=== PATIENT | female | born 1940 | race Caucasian/White ===

== ENCOUNTER 2016-10-29 07:44 | Inpatient (IN) | payer MEDICARE, OTHER ==
[2016-10-29] VITALS (15 sets, daily range): BP systolic 115–168; BP diastolic 53–100; PULSE 55–97; RESP 10–20; Ht 158.8 cm; Wt 52.9 kg
[~2016-10-29] VITALS: Ht 158.8 cm; Wt 52.9 kg
[2016-10-29] MEDS ORDERED: ASPI-664 PO (08:34)
[2016-10-29] MEDS ORDERED: LOSA1TAB19 PO (08:34)
[2016-10-29] MEDS ORDERED: SUCCINYLCHOLINE CHLORIDE 100 MG/5 ML SYG IV ONE (08:36)
[2016-10-29] MEDS ORDERED: MIDAZOLAM 1 MG/ML 2 ML INJ ONE (08:36)
[2016-10-29] MEDS ORDERED: LIDOCAINE 2% (SDV) 5 ML INJ ONE (08:36)
[2016-10-29] MEDS ORDERED: ROCURONIUM 50 MG INJ ONE (08:36)
[2016-10-29] MEDS ORDERED: PROPOFOL 20 ML ONE (08:36)
[2016-10-29] MEDS ORDERED: FENTAnyl 50 MCG/ML VIAL ONE ×2 (08:36→10:59)
[2016-10-29] MEDS ORDERED: PRAV40TA76 PO (08:37)
[2016-10-29] MEDS ORDERED: CHOL10009 PO (08:37)
[2016-10-29] MEDS ORDERED: METF850T PO (08:37)
[2016-10-29] MEDS ORDERED: ONDANSETRON 4 MG INJ IV PRN ×2 (09:00→12:00)
[2016-10-29] MEDS ORDERED: OXYCODONE/ACETAMINOPHEN (5/325) TAB PO PRN ×2 (09:00)
[2016-10-29] MEDS ORDERED: MEPERIDINE 25 MG INJ IV PRN (09:00)
[2016-10-29] MEDS ORDERED: FENTAnyl 50 MCG/ML VIAL IV PRN (09:00)
[2016-10-29] MEDS ORDERED: PROCHLORPERAZINE 10 MG INJ IV PRN (09:00)
[2016-10-29] MEDS ORDERED: HYDROmorphONE (0.2 MG/ML) 10ML SYG IV PRN (09:00)
[2016-10-29] MEDS ORDERED: DIPHENHYDRAMINE 50 MG INJ IV PRN (09:00)
--- NOTE | 2016-10-29 09:32 | HPN ---
Date/Time of Note Date/Time of Note DATE: 10/29/16 TIME: 09:32 Interval H&P Admission Note Pt. seen H&P reviewed: No system changes FCO GRAJEDA MD Oct 29, 2016 09:32
[2016-10-29] MEDS ORDERED: LIDOCAINE 2%/EPI 30 ML INJ ONE (09:50)
[2016-10-29] MEDS ORDERED: BUPIVACAINE 0.5% (SDV) 30 ML INJ ONE (09:50)
[2016-10-29] MEDS ORDERED: POLYMYXIN/BACITRACIN 1L IRRIG ONE (09:51)
[2016-10-29] MEDS ORDERED: BACITRACIN/POLYMYXIN 28.35 GM OINT TOP ONE (09:51)
[2016-10-29] MEDS ORDERED: ONDANSETRON 4 MG INJ ONE (10:19)
[2016-10-29] MEDS ORDERED: METOCLOPRAMIDE 10 MG INJ ONE (10:19)
[2016-10-29] MEDS ORDERED: DEXAMETHASONE 4 MG/ML 1 ML INJ ONE (10:19)
[2016-10-29] MEDS ORDERED: CEFAZOLIN 1 GM INJ ONE (10:19)
[2016-10-29] MEDS ORDERED: PHENYLephrine (100 MCG/ML) 5ML SYG ONE (10:20)
[2016-10-29] MEDS ORDERED: INSULIN ASPART [NOVOLOG] 3 ML PEN SC ONE ×2 (10:30→22:00)
[2016-10-29] MEDS ORDERED: POLYMYXIN/BACITRACIN 1L IRRIG IRR ONE (10:53)
[2016-10-29] MEDS ORDERED: GLUCOSE GEL 15 GRAM TUBE BUCCAL PRN ×2 (11:00→12:30)
[2016-10-29] MEDS ORDERED: GLUCOSE GEL 15 GRAM TUBE PO PRN ×4 (11:00→12:30)
[2016-10-29] MEDS ORDERED: DEXTROSE 50% 50 ML SYRINGE IV PRN ×4 (11:00→12:30)
[2016-10-29] MEDS ORDERED: GLUCAGON 1 MG INJ IM PRN ×2 (11:00→12:30)
[2016-10-29] MEDS ORDERED: THROMBIN 5000 UNIT VIAL ONE (11:02)
[2016-10-29] MEDS ORDERED: GELATIN SIZE 100 SPONGE ONE (11:02)
[2016-10-29] MEDS ORDERED: EPHEDrine SULFATE 50 MG/5 ML SYG ONE (11:16)
[2016-10-29] MEDS ORDERED: GLYCOPYRROLATE 0.4 MG INJ ONE (11:18)
[2016-10-29] MEDS ORDERED: NEOSTIGMINE 3 MG/3 ML SYRINGE ONE (11:18)
[2016-10-29] MEDS ORDERED: HYDROCODONE/APAP (5/325) TAB PO PRN (12:00)
[2016-10-29] MEDS ORDERED: BISACODYL 10 MG SUPP PR PRN (12:00)
[2016-10-29] MEDS ORDERED: NALOXONE (0.4 MG/ML) INJ IV PRN (12:00)
[2016-10-29] MEDS ORDERED: HYDROmorphONE 1 MG/ML SYG IV PRN (12:00)
--- NOTE | 2016-10-29 12:11 | OPR ---
Date/Time of Note Date/Time of Note DATE: 10/29/16 TIME: 12:09 Operative Report Preoperative Diagnosis Normal Pressure Hydrocephalus Postoperative Diagnosis Normal Pressure Hydrocephalus Operation/Procedure Performed Right parietal ventriculoperitoneal shunt placement (Codman Sertas programmable set at 110) Surgeon: FCO GRAJEDA MD Estimated Blood Loss: 0 - 10 ml's Specimens CSF panel Grafts/Implants See op report Complications: None FCO GRAJEDA MD Oct 29, 2016 12:11
--- NOTE | 2016-10-29 12:57 | RADRPT ---
PROCEDURE: CT Head without. CLINICAL INDICATION: Postop evaluation. TECHNIQUE: The study was performed utilizing a multi-slice, multidetector CT scanner. Direct spira l 1 mm axial sections were obtained through the head without the use of intravenous contrast materia l. 1 or more of the following dose reduction techniques were utilized: Automated exposure control, adjustment of the mA and/or kV according to patient's size, iterative reconstruction technique. Co darien and sagittal reformations were obtained. The images were reviewed on a PACS workstation. RADIATION DOSE: CTDIvol: 45.0 mGyDLP: 630.2 mGy-cm COMPARISON: No prior studies are available for comparison. FINDINGS: There are postoperative changes from right parietal approach ventriculostomy with tip in the frontal horn of the right lateral ventricle. There is moderate prominence of the lateral and third ventric les, with mild ballooning of the bilateral temporal horns. There is moderate patchy periventricular white matter hypodensity, suggestive of transependymal CSF migration. There is mild peripheral cer ebral volume loss. There is a trace amount of pneumocephalus anterior to the right frontal lobe. T he brainstem and cerebellum are unremarkable. The fourth ventricle is minimally enlarged. There ar e mild inflammatory changes of the bilateral ethmoid air cells. The mastoid air cells and middle ea r cavities are normally aerated. There is pneumatization of the bilateral petrous apices without sully dence of inflammatory changes, normal variant. There are postoperative changes in the right temporal soft tissues with shunt reservoir in place. There is no intracranial hemorrhage, extra-axial fluid collection, mass lesion or midline shift. IMPRESSION: 1. Postoperative changes from right parietal approach ventriculostomy with tip in the frontal horn of the right lateral ventricle. 2. Moderate prominence of the lateral and third ventricles suggestive of hydrocephalus with mild tr ansependymal CSF migration. 3. No intracranial hemorrhage, extra-axial fluid collection, mass lesion or hydrocephalous. RPTAT: HGAS .Isael Garcia MD, Date Time Electronically viewed and signed by .Isael Garcia MD, on 10/29/2016 12:57 .S/
[2016-10-29 13:19] LABS: GLUCOSE,CSF 59 mg/dl (50-80)
[2016-10-29 13:20] LABS: # OF CELLS COUNTED 100; CSF COLOR COLORLESS; CSF VOLUME 2.5 ml
[2016-10-29 13:21] LABS: %CREANATED RBC CSF 0 %; CSF#TUBE COUNT TUBE#1; CSF#TUBES REC'D 1
--- NOTE | 2016-10-29 13:38 | RADRPT ---
PROCEDURE: XR Abdomen 2 views. CLINICAL INDICATION: Abdominal pain TECHNIQUE: AP and lateral supine abdomen x-ray. COMPARISON: None. FINDINGS: Ventriculoperitoneal shunt is identified curled over the anterior mid and upper abdomen in the midli ne. Scattered air and stool are noted in the colon. No dilated loops of small bowel are observed. No organomegaly is observed. A few phleboliths are seen in the pelvis. Calcified atherosclerosis is noted in the aorta. Degenerative changes are identified in the hips and spine. IMPRESSION: Ventriculoperitoneal shunt curled in the anterior mid and upper abdomen. Nonspecific bowel gas pattern. If further characterization of the abdomen is needed CT should be considered. RPTAT: AA .Otf Daly MD, Date Time Electronically viewed and signed by .Otf Daly MD, MD on 10/29/2016 13:38 .P/
[2016-10-29] MEDS: CEFAZOLIN 1 GM/50 ML (PMX) 50 ML IVPB SCH ×2 (13:56→21:25)
[2016-10-29] MEDS ORDERED: D5W-0.45 NACL + KCL 20 MEQ 1,000 ML IV SCH (14:00)
--- NOTE | 2016-10-29 14:15 | HP ---
Date/Time of Note Date/Time of Note DATE: 10/29/16 TIME: 14:07 Assessment/Plan VTE Prophylaxis VTE Prophylaxis Intervention: SCD's Lines/Catheters IV Catheter Type (from Nrs): Peripheral IV Assessment/Plan Problems: (1) S/P PATTERNMAKER ALL AROUND shunt Status: Acute Comment: She is successfully postop from a PATTERNMAKER ALL AROUND shunt for normal pressure hydrocephalus. We will have to see how much recovery of function she gets intellectually and mechanically. Please note that the mechanical portion is also dependent on the rather significant lumbar spinal disease that she has as well. It is not immediately clear to me whether or not neurosurgery has plans to do something with that at a later date. 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 This will affect her rehabilitation and will have to work with her carefully. (3) Lumbar spinal stenosis Status: Chronic Comment: As per neurosurgery. (4) Normal pressure hydrocephalus Status: Chronic Comment: Immediately postop hopefully good outcome (5) Diabetes mellitus type 2 in nonobese Status: Chronic Comment: She has been well controlled on her rather simplistic single agent regimen. Will continue this. (6) Hyperlipidemia associated with type 2 diabetes mellitus Status: Chronic Comment: Continue statin therapy which the patient's tolerating (7) Essential hypertension Status: Chronic Comment: Continue A2 receptor abigail therapy. HPI/ROS Admit Date/Time Admit Date/Time Oct 29, 2016 at 07:44 Hx of Present Illness 76-year-old single female who is admitted electively by Dr. Alfaro for elective PATTERNMAKER ALL AROUND shunt placement. She had been evaluated for ambulatory instability and was found to have normally lumbar spinal stenosis with significant radiculopathy but she also had normal pressure hydrocephalus with all of its attendant complications. She is now had a PATTERNMAKER ALL AROUND shunt placed by neurosurgery successfully. She is resting in bed answering questions appropriately. 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 She has a bachelor's degree with a experience. She is a retired software "remote mortgage underwriter. She now lives with her daughter 's family locally having previously lived in [place] alone. Alcohol Use: rarely Smoking Status: Former smoker (Quit 3 months ago) Drug Use: none Exam/Review of Systems Vital Signs Vitals Vital Signs Date Time Temp Pulse Resp B/P Pulse Ox O2 Delivery O2 Flow Rate FiO2 10/29/16 14:01 64 10/29/16 12:40 15 152/60 98 Room Air 10/29/16 12:20 10.0 10/29/16 12:06 98.0 Exam Constitutional: alert (She is oriented to person and place but not time she however is able to name the political figures of the day) Psych: no complaints Eyes: EOMI, nl conjunctiva, nl lids, nl sclera ENMT: mucosa pink and moist, nl external ears & nose, nl lips & teeth, nl nasal mucosa & septum Neck: supple Respiratory: clear to auscultation, normal air movement Cardiovascular: nl pulses, regular rate and rhythm Gastrointestinal: nl liver, spleen, non-tender, soft Extremities: normal pulses, other (Decreased muscle mass in the left gastroc) Neurological: CAMPAIGN CONSULTANT II-XII intact, nl speech, nl strength Skin: nl turgor, rash or lesions Medications Medications Current Medications Miscellaneous Information 1 ea NOTE XX ; Start 10/29/16 at 11:00 Glucose (Glutose) 15 gm Q15M PRN PO DECREASED GLUCOSE; Start 10/29/16 at 11:00 Glucose (Glutose) 22.5 gm Q15M PRN PO DECREASED GLUCOSE; Start 10/29/16 at 11:00 Dextrose (D50w Syringe) 25 ml Q15M PRN IV DECREASED GLUCOSE; Start 10/29/16 at 11:00 Dextrose (D50w Syringe) 50 ml Q15M PRN IV DECREASED GLUCOSE; Start 10/29/16 at 11:00 Glucagon (Glucagen) 1 mg Q15M PRN IM DECREASED GLUCOSE; Start 10/29/16 at 11:00 Glucose 15 gm 15 gm Q15M PRN BUCCAL DECREASED GLUCOSE; Start 10/29/16 at 11:00 Potassium Chloride/Dextrose/ Sod Cl (D5-1/2ns + KCl 20 Meq) 1,000 ml @ 100 mls/ hr Q10H IV Last administered on 10/29/16 13:57; Admin Dose 100 MLS/HR; Start at 14:00 Acetaminophen/ Hydrocodone Bitart ([place] (5/325)) 1 tab Q4H PRN PO PAIN LEVEL 1 -5; Start 10/29/16 at 12:00 Hydromorphone HCl 0.2 mg 0.2 mg Q1H PRN IV BREAKTHROUGH PAIN; Start 10/29/16 at 12:00 Cefazolin Sodium (Ancef 1 Gm/50 ml (Pmx)) 50 ml @ 100 mls/hr Q8H IVPB Last administered on 10/29/16 13:56; Admin Dose 100 MLS/HR; Start 10/29/16 at 14:00; Stop 10/30/16 at 06:29 Ondansetron HCl (Zofran Inj) 4 mg Q6H PRN IV NAUSEA AND/OR VOMITING; Start 10/29 at 12:00 Bisacodyl (Dulcolax Supp) 10 mg DAILY PRN VA CONSTIPATION; Start 10/29/16 at 12: 00 Docusate Sodium (Colace) 100 mg BID PO ; Start 10/29/16 at 21:00 Pantoprazole (Protonix Iv) 40 mg DAILY@06 IV ; Start 10/30/16 at 06:00 Naloxone HCl (Narcan) 0.2 mg Q2M PRN IV RR 8 BREATHS/MIN OR LESS; Start at 12:00 Neomycin/ Polymyxin/ Bacitracin (Neosporin Topical Oint) 1 applic BID TOP ; Start 10/29/16 at 21:00 Cholecalciferol (Vitamin D) 1,000 unit DAILY PO ; Start 10/30/16 at 09:00 Atorvastatin Calcium (Lipitor) 10 mg DAILY@21 PO ; Start 10/29/16 at 21:00 Miscellaneous Information 1 ea NOTE XX ; Start 10/29/16 at 12:30 Glucose (Glutose) 15 gm Q15M PRN PO DECREASED GLUCOSE; Start 10/29/16 at 12:30 Glucose (Glutose) 22.5 gm Q15M PRN PO DECREASED GLUCOSE; Start 10/29/16 at 12:30 Dextrose (D50w Syringe) 25 ml Q15M PRN IV DECREASED GLUCOSE; Start 10/29/16 at 12:30 Dextrose (D50w Syringe) 50 ml Q15M PRN IV DECREASED GLUCOSE; Start 10/29/16 at 12:30 Glucagon (Glucagen) 1 mg Q15M PRN IM DECREASED GLUCOSE; Start 10/29/16 at 12:30 Glucose (Glutose) 15 gm Q15M PRN BUCCAL DECREASED GLUCOSE; Start 10/29/16 at 12: 30 Hydrochlorothiazide (Hydrochlorothiazide) 12.5 mg DAILY PO ; Start 10/29/16 at 17 :00 JOAQUIN PERDOMO MD Oct 29, 2016 14:15
[2016-10-29] MEDS ORDERED: metFORMIN 850 MG TAB PO SCH ×2 (17:25→18:00)
[2016-10-29] MEDS: HYDROCHLOROTHIAZIDE 12.5 MG CAP PO SCH (17:28)
[2016-10-29] MEDS ORDERED: ATORVASTATIN 20 MG TAB PO SCH (21:00)
[2016-10-29] MEDS ORDERED: ATORVASTATIN 10 MG TAB PO SCH (21:00)
[2016-10-29] MEDS ORDERED: NON-FORMULARY/PATIENT OWN MED (Pravastatin Sodium* 40 MG) PO SCH (21:00)
[2016-10-29] MEDS: DOCUSATE SODIUM 100 MG CAP PO SCH (21:25)
[2016-10-29] MEDS: NEOMYC/POLYMYX/BACIT 30 GM OINT TOP SCH (22:43)
[2016-10-30] VITALS (9 sets, daily range): BP systolic 137–175; BP diastolic 59–78; PULSE 88–102; RESP 17–18
[2016-10-30] MEDS: CEFAZOLIN 1 GM/50 ML (PMX) 50 ML IVPB SCH (05:50)
[2016-10-30] MEDS ORDERED: PANTOPRAZOLE 40 MG INJ IV SCH (06:00)
[2016-10-30] MEDS ORDERED: HYDROCHLOROTHIAZIDE 12.5 MG CAP PO SCH (09:00)
[2016-10-30] MEDS ORDERED: CHOLECALCIFEROL 1,000 UNIT TAB PO SCH ×2 (09:00)
[2016-10-30] MEDS ORDERED: LOSARTAN 50 MG TAB PO SCH (09:00)
[2016-10-30] MEDS: DOCUSATE SODIUM 100 MG CAP PO SCH (09:09)
[2016-10-30] MEDS: HYDROCHLOROTHIAZIDE 12.5 MG CAP PO SCH (09:10)
[2016-10-30] MEDS: NEOMYC/POLYMYX/BACIT 30 GM OINT TOP SCH (09:10)
--- NOTE | 2016-10-30 10:58 | PDOCDIS ---
Discharge Instructions DIAGNOSIS Discharge Diagnosis Normal pressure hydrocephalus status post SPECIAL WEAPONS AND TACTICS OFFICER shunt; diabetes mellitus type 2; hypertension; hyperlipidemia; lumbar spinal stenosis with radiculopathy especially to the right CONDITION Patient Condition: Good HOME CARE INSTRUCTIONS: Special Diet: 1800 nigel ADA ACTIVITY: Activity Restrictions: Slowly Increase Activity Do not operate Machinery Do not operate Power Tool FOLLOW UP/APPOINTMENTS Follow-up Plan Neurosurgery Dr. Alfaro in [address] Navarro in 1 month SCHOOL/WORK RELEASE May return to School/Work with: No Restrictions JOAQUIN NAVARRO MD Oct 30, 2016 10:58
--- NOTE | 2016-10-30 11:01 | DS ---
Date/Time of Note Date/Time of Note DATE: 10/30/16 TIME: 10:59 Discharge Summary Admission/Discharge Info Admit Date/Time Oct 29, 2016 at 07:44 Discharge Date/Time 10/30/2016 Discharge Diagnosis Normal pressure hydrocephalus status post CAGE/VAULT SUPERVISOR shunt; diabetes mellitus type 2; hypertension; hyperlipidemia; lumbar spinal stenosis with radiculopathy especially to the right Patient Condition: Good Consults Internal medicine Procedures Operative Report Preoperative Diagnosis Normal Pressure Hydrocephalus Postoperative Diagnosis Normal Pressure Hydrocephalus Operation/Procedure Performed Right parietal ventriculoperitoneal shunt placement (Codman Sertas programmable set at 110) Surgeon: FCO GRAJEDA MD Estimated Blood Loss: 0 - 10 ml's Specimens CSF panel Grafts/Implants See op report Complications: None FCO GRAJEDA MD Hx of Present Illness 76-year-old single female who is admitted electively by Dr. Grajeda for elective CAGE/VAULT SUPERVISOR shunt placement. She had been evaluated for ambulatory instability and was found to have normally lumbar spinal stenosis with significant radiculopathy but she also had normal pressure hydrocephalus with all of its attendant complications. She is now had a CAGE/VAULT SUPERVISOR shunt placed by neurosurgery successfully. She is resting in bed answering questions appropriately. Hospital Course 76-year-old female with normal pressure hydrocephalus and lumbar spinal stenosis. She is brought in electively for the CAGE/VAULT SUPERVISOR shunt which was performed without complication. She has tolerated procedure well and has had no complications. She is trying to ambulate with the daughter's assistance. Will have physical therapy evaluate her before she goes home for any fine- tuning. Her rehabilitation potential is fair to good she has no known chemical diseases he is not a hazard to herself or others. She will follow-up with Dr. Grajeda in 1-2 weeks and in my office in 1 month. Home Meds Reported Medications Metformin Hcl* (Metformin Hcl*) 850 Mg Tablet, 850 MG PO WITH BREAKFAST DINNE, # 30 TAB 10/29/16 Pravastatin Sodium* (Pravastatin Sodium*) 40 Mg Tablet, 40 MG PO HS, TAB 10/29/16 Cholecalciferol (Vitamin D3) 1,000 Unit Capsule, 1000 UNIT PO DAILY, CAP 10/29/16 Losartan-Hydrochlorothiazide (Losartan-HCTZ) 50-12.5 Mg Tab, 1 TAB PO DAILY, TAB 10/29/16 Aspirin (Low Dose Aspirin) 81 Mg Tablet., 81 MG PO DAILY, #30 TAB 10/29/16 Follow-up Plan As above Primary Care Provider Not On Staff Doctor Time spent on discharge: > 30 minutes Pending Labs Laboratory Tests Test 10/29/16 12:00 10/29/16 12:26 10/29/16 12:30 10/29/16 21:29 CSF Glucose 59mg/dl (50-80) CSF Total Protein 24mg/dl (12-60) Bedside Glucose 98mg/dL (70-220) 317mg/dL (70-220) CSF Tubes Submitted 1 CSF Volume 2.5ml CSF Appearance CLEAR CSF Color COLORLESS CSF WBC 10/uL (0-10) CSF RBC 0/uL (0-0) CSF Cell Count Tube # TUBE#1 CSF Total Cells Counted 100 CSF Neutrophils % 30% CSF Lymphocytes % 40% CSF Monocytes % 30% CSF Crenated Cells 0% Test 10/30/16 01:34 10/30/16 08:02 Bedside Glucose 71mg/dL (70-220) 105mg/dL (70-220) Microbiology Date/Time Source Procedure Growth Status 10/29/16 12:00 Ventricular Csf Gram Stain - Final Resulted 10/29/16 12:00 Ventricular Csf CSF Culture - Preliminary Resulted JOAQUIN PERDOMO MD Oct 30, 2016 11:01
--- NOTE | 2016-12-15 16:30 | OPR ---
Date/Time of Note Date/Time of Note DATE: 12/15/16 TIME: 16:29 Operative Report Free Text/Dictation Please note: The original dictated operative report does not appear in the computer due to Hospital phone laboratory analyst problems that have since been resolved. Date of operation: 10/29/2016 Operating surgeon: Fco Grajeda M.D. Preoperative diagnosis: Normal pressure hydrocephalus Postoperative diagnosis: Normal pressure hydrocephalus Operation performed: Right parietal ventriculoperitoneal shunt placement ( Codman Sertas programmable shunt valve set at 110) Indication for procedure: This is a 76-year-old female with progressively increasing triad of symptoms including gait ataxia and instability, bladder incontinence as well as cognitive decline including memory loss over the past 1- 2 years. The patient was found to have ventriculomegaly out of proportion to age-related cerebral atrophy on imaging studies. The patient's image findings together with her signs and symptoms are consistent with normal pressure hydrocephalus and the patient was referred by neurology to de for further evaluation and management. The neurologist has requested a diagnostic lumbar puncture under interventional techniques but due to the patient's lumbar spondylosis and the patient's discomfort during the procedure a lumbar puncture was not possible. The patient was also found to have lumbar stenosis causing lumbar radiculopathy as well as neurogenic claudication symptoms. The risks and benefits of the above operation were explained in great detail to the patient as well as her daughter with the understanding that the patient's symptoms may not resolve or improve even with CSF diversion procedure i.e. the patient placement. The patient and her daughter also understand that she will be reevaluated postoperatively and will determine whether she would also benefit from lumbar decompressive surgery for lumbar stenosis. The patient and her daughter fully understand the above discussion and wished to proceed with the above surgery. Description of operative procedure: The patient was brought to the operating room and placed supine on the operating table. After general anesthesia was obtained, a roll was placed underneath the patient's right hemithorax. The patient's head was then rotated towards the left exposing the right hemiscalp. A small curvilinear incision 2 fingerbreadths above and 2 fingerbreadths posterior to the ear, approximately at the level of the right parietal boss was marked. A small strip of hair was then shaven. Also a small linear incision by the right paramedian area in the right upper abdominal quadrant was marked. After the scalp, neck, chest and abdomen was prepped and draped under essential fashion, local anesthetic infiltrated into both marked incisions. Attention was first paid to the abdominal incision. The skin was incised down to the level of the fascia. The rectus sheath was then cut down to the level of the muscles. The muscle fibers were then spread and the posterior rectus sheath and the transversalis fascia was cut. The peritoneum was located and a small opening into the peritoneum was made. The omentum and bowel was visualized directly. Tonsils were placed around the edges of the peritoneum keeping the intraperitoneal space open. Attention was now paid to the right parietal area. The skin was incised down to the level of the skull. A small pocket for the shunt valve was created just above the pericranium and inferiorly. Using a title officer, a bur hole was made down to the level of the dura over the exposed skull. Then the Bacticeal distal CALENDERING MACHINE OPERATOR shunt catheter was connected to the [facility] [employer] programmable shunt valve that was preprogrammed to a setting of 110. The shunt valve and the distal shunt tubing was primed with antibiotic irrigation. The distal CALENDERING MACHINE OPERATOR shunt was then tunneled between the scalp incision towards the abdominal incision. The dura was then coagulated and a small opening into the dura was made. The proximal CALENDERING MACHINE OPERATOR shunt catheter was then inserted almost perpendicular angle to the brain until a pop into the ependyma was felt. At this point the stylet was removed and the rest of the proximal shunt catheter was further advanced with little resistance into the lateral ventricle. Clear CSF was seen progression to out of the shunt tubing under relatively increased pressure. Some CSF was sent off the table for CSF panel including Gram stain and culture. The excess part of the proximal shunt catheter was cut and he was subsequently connected to the proximal part of the CALENDERING MACHINE OPERATOR shunt valve. The attachment of the shunt catheters both proximally and distally to the shunt valve was secured in position with sutures. Clear CSF could be easily aspirated from the tip of the distal CALENDERING MACHINE OPERATOR shunt catheter. The distal CALENDERING MACHINE OPERATOR shunt catheter was then inserted into the intraperitoneal space with little resistance. Both the scalp and the abdominal incisions were copiously irrigated with solution and complete hemostasis was obtained. The posterior and anterior rectus sheath over the abdomen was then reapproximated with interrupted sutures. The dermal layer was reapproximated with interrupted sutures. The skin over the abdominal incision was reapproximated with Dermabond. The scalp incision was then reapproximated at the level of the galea and dermis with interrupted sutures. The skin was then reapproximated with a simple running Rapide 3-0 suture. A sterile dressing was placed over the abdominal incision. A thin film of triple antibiotic ointment was placed over the right scalp incision. The patient was then woken up, extubated and transported to the recovery room in stable condition. Estimated blood loss: 10 cc Blood product administered: None Anesthesia: Gen. Incisions: Right parietal and right upper quadrant abdominal Skin closure: Dermabond for abdominal incision and Rapide 3-0 suture for scalp Patient's condition: Stable Prognosis: Good Wound classification: Clean Specimen removed: CSF panel including culture and Gram stain Packs/drains: None Surgeon: FCO GRAJEDA MD Estimated Blood Loss: 0 - 10 ml's FCO GRAJEDA MD Dec 15, 2016 16:30
== END 2016-10-30 13:36 | disposition home or self-care (01) | DRG 33 ==
LOC: REC 07:44 → EDSTATUS 09:30 → TEL 13:24
PROVIDERS: ADMIT Neurological Surgery; ATTEND Neurological Surgery
PROC: 009 Central Nervous System and Cranial Nerves, Drainage (ICD-10-PCS; 2016-10-29)
PROC: 00163J6 Bypass Cerebral Ventricle to Peritoneal Cavity with Synthetic Substitute, Percutaneous Approach (ICD-10-PCS; principal; 2016-10-29 09:30)
DX: G91.2 (Idiopathic) normal pressure hydrocephalus (principal); E11.65 Type 2 diabetes mellitus with hyperglycemia; M48.06 Spinal stenosis, lumbar region; I10 Essential (primary) hypertension; M54.16 Radiculopathy, lumbar region; R27.0 Ataxia, unspecified; R39.81 Functional urinary incontinence; R41.3 Other amnesia; Z87.891 Personal history of nicotine dependence; I25.2 Old myocardial infarction
CPT/HCPCS: 70450; 74010; 82945; 82962; 84157; 87070; 89050; 97162; C9113; J0690; J1100; J1815; J2250; J2310; J2370; J2405; J2710; J2765; J3010; J3480; J7999